=== PATIENT | male | born 1935 | race Caucasian/White ===

== ENCOUNTER 2016-09-05 12:51 | Day surgery (SDC) | payer MEDICARE, BC ==
--- NOTE | ~2016-09-05 | OP ---
Record Of Operation [facility] [address] [place]. [address] NAME: LG GAMA JR : 37 STATUS : [facility]#: [id number] AGE: 81 ADM/REG DATE : 09/05/16 MR#: [id number] REPORT SERV DATE: 09/05/16 DICTATED BY: DANELLE CRUZ DATE: 09/05/16 REPORT STATUS : Draft TRANSCRIBED BY: MODL DATE: 09/05/16 DATE OF PROCEDURE: 09/05/2016 PREOPERATIVE DIAGNOSIS: Recurrent urothelial carcinoma of the bladder. POSTOPERATIVE DIAGNOSIS: Recurrent urothelial carcinoma of the bladder. PROCEDURE PERFORMED: Cystoscopy, transurethral resection of bladder tumor of multifocal bladder tumor greater than 5 cm in total. SURGEON: Danelle Cruz M.D. ANESTHESIA: General. ESTIMATED BLOOD LOSS: 10 mL. INDICATIONS: This is an 81-year-old white male with a history of recurrent urothelial carcinoma of the bladder, which has been both low and high-grade, but non-invasive. 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 Recent office endoscopy has shown what looked like some recurrent papillary tumor in the right bladder floor. We are planning cystoscopy, biopsy, TURBT, etc. Risks of infection, bleeding, failure, and need for further surgery have been discussed. PROCEDURE IN DETAIL: The patient was taken to the operating room and underwent a general anesthetic. He was placed in a lithotomy position on the table, and his external genitalia were sterilely prepped and draped. The 22-Malian cystoscope sheath with 30-degree lens was inserted under direct vision per urethra with the aid of the video monitor. The anterior urethra had a mild subglanular stricture which was passed with the scope. The remainder of the urethra looked okay. The prostatic urethra had residual apical adenoma which was actually really at or distal to the VERU. The remainder of the prostatic urethra looked open. He had an elevated bladder neck, and the prostatic mucosa looked a little irritated. The bladder was thoroughly inspected. It was very heavily trabeculated. A papillary lesion was noted on the anterior wall and on the posterior wall. Each of those measured about a centimeter to a centimeter and a half in size. The papillary growth was noted along the right trigonal region and right anterior bladder wall from about the 11 o'clock to the 9 o'clock position as well, almost at the prostatovesical junction. Collectively, these tumors measured 3 cm or so in size. I did identify single orifices bilaterally. The orifices were very close to the prostate and were not involved in tumor. The cystoscope was withdrawn from the bladder and the urethra was dilated to 28-Malian using sounds and the 26- Malian resectoscope sheath with Shabbir obturator was inserted per urethra. A 30-degree lens with the aid of the video monitor was used to re-identify bladder and prostate landmarks. The hot loop was used first to resect the anterior wall tumor and a rollerball was used to thoroughly cauterize the resection bed. Similarly, the posterior wall tumor was resected and again the rollerball was used to fulgurate this resection bed. All the tumor growing in the right wall and right floor of the bladder adjacent to the prostatovesical junction was also shallowly resected with the hot knife, and the rollerball was used to Record Of Operation [address] [address] NAME: LG GAMA : 37 STATUS : [facility] PAT#: [id number] AGE: 81 ADM/REG DATE : 09/05/16 MR#: [id number] REPORT SERV DATE: 09/05/16 DICTATED BY: DANELLE CRUZ DATE: 09/05/16 REPORT STATUS : Draft TRANSCRIBED BY: RIK DATE: 09/05/16 cauterize this entire resection bed as well. At the conclusion of this procedure, no visible tumor or particularly suspicious areas were remaining within the bladder. The orifices have not been involved with the resection or fulguration process. The Ellik evacuator was used to remove all tumor chips from the bladder. The bladder was reinspected with no new findings and no significant bleeding. The endoscopic apparatus was withdrawn from the bladder and a Plummer catheter was placed to gravity drainage with return of clear urine. He tolerated the procedure well and was taken to recovery in stable condition. ОЛЬГА/RIK Danelle Cruz M.D. / [id number] CC: Danelle Cruz M.D. Elvis Moore M.D.
[~2016-09-05 12:51] MED LIST: AMB10 PO; CARDU4 PO; CEFT5 PO; CELEBREX2 PO; CIP5 PO; DSS PO; FLONASE NAS; LEVAQUIN750 MG PO; P5 PO; PCET PO; PYR200 PO; RAPAFLO8 MG PO; T PO
== END 2016-09-05 20:00 | disposition home or self-care (01) ==
LOC: SDC 12:51
PROVIDERS: Urology
PROC: 0TBB8ZZ Excision of Bladder, Via Natural or Artificial Opening Endoscopic (ICD-10-PCS; principal; 2016-09-05 14:15)
DX: C67.3 Malignant neoplasm of anterior wall of bladder (principal); C67.4 Malignant neoplasm of posterior wall of bladder; J44.9 Chronic obstructive pulmonary disease, unspecified; M19.90 Unspecified osteoarthritis, unspecified site; F17.210 Nicotine dependence, cigarettes, uncomplicated; Z87.442 Personal history of urinary calculi; Z88.0 Allergy status to penicillin; Z88.2 Allergy status to sulfonamides; Z79.2 Long term (current) use of antibiotics; Z85.51 Personal history of malignant neoplasm of bladder; Z96.1 Presence of intraocular lens; Z98.41 Cataract extraction status, right eye; Z98.42 Cataract extraction status, left eye; Z90.89 Acquired absence of other organs; Z79.899 Other long term (current) drug therapy; Z98.890 Other specified postprocedural states
CPT/HCPCS: 71020; 80048; 85610; 85730; 88307; 93005; A9270-GY; J2405; J2710; J3010; J9280